=== PATIENT | female | born 1945 | race Caucasian/White ===

== ENCOUNTER 2016-07-02 07:34 | Day surgery (SDC) | payer MEDICARE ==
[~2016-07-02] VITALS: Ht 160 cm; Wt 59.4 kg
[~2016-07-02 07:34] MED LIST: 0.9% Sodium Chloride 1,000 ML IV SCH; ALBU8.5H2 INHALATION; ATOR20TA65 PO; ESCI10TA3 PO; METF1000 PO; Sodium Chloride LOK Flush 10 mL Syringe IV PRN; fentaNYL-PF 50 mCg/mL 2 mL Inj IVPUSH PRN
[2016-07-02 07:58] VITALS: BP 125/76; PULSE 72; RESP 18; O2SAT 98
[2016-07-02 09:45] VITALS: BP 108/63; PULSE 60; RESP 14; O2SAT 95
[2016-07-02 09:55] VITALS: BP 106/61; PULSE 57; RESP 14; O2SAT 95
[2016-07-02 10:05] VITALS: BP 104/58; PULSE 57; RESP 14; O2SAT 96
[2016-07-02 10:14] VITALS: BP 108/63; PULSE 58; RESP 14; O2SAT 97
--- NOTE | 2016-07-02 10:16 | ENDO ---
[address] [address] ENDOSCOPY PROCEDURE PATIENT: KEREN PEARCE : 1945 MR#: [id number] ADMIT: 07/02/2016 JOB ID: [id number] PROCEDURE: Colonoscopy. INDICATION: Altered bowel habits. ASA CLASSIFICATION: 2. MALLAMPATI SCORE: 2. MEDICATIONS: Versed 5 mg and fentanyl 100 mcg. INSTRUMENT USED: PCF-H180L. PREP QUALITY: Poor. PROCEDURE DETAILS: After informed consent was obtained, the patient was brought to the GI suite, where she was placed on oxygen via nasal cannula and monitored with continuous pulse oximeter, telemetry, and blood pressure monitoring. A time-out was performed. Then, she was placed in a left lateral decubitus position and medications were administered for sedation. Digital rectal exam was performed which was unremarkable. The colonoscope was then inserted into the rectum and advanced under direct visualization to the cecum, which is identified by the presence of the ileocecal valve and appendiceal orifice. Once cecum was reached colonoscope was withdrawn back into the rectum. Mucosa and lumen were examined. In the rectum, retroflexion was performed. Following retroflexion, remaining air in the rectum was suctioned and the procedure was completed. FINDINGS: 1. The prep was poor throughout the colon. Therefore smaller lesions may have been missed. 2. In the ascending colon, there was a flat 8 mm polyp that was lifted using normal saline and then removed with a hot snare. Following polypectomy there was bleeding at the site. Bleeding was controlled with placement of 1 [employer] clip. 3. The remainder of the visualized colon mucosa otherwise appeared unremarkable. Multiple random biopsies were obtained throughout the colon. 4. Retroflexed views in the rectum were unremarkable. IMPRESSIONS: 1. Ascending colon polyp. 2. Poor prep. RECOMMENDATIONS: 1. Repeat colonoscopy with 2 day prep. 2. Recommend MiraLAX daily. 3. Followup in GI clinic after repeat colonoscopy. COMPLICATIONS: None. ESTIMATED BLOOD LOSS: Less than 5 mL.
[2016-07-02 10:24] VITALS: BP 112/59; PULSE 69; RESP 16; O2SAT 100
--- NOTE | 2016-07-03 18:27 | PATH ---
SURGICAL PATHOLOGY Attending Physician:Adele Giles CASE STATUS: Signed Out PATIENT NAME: KEREN PEARCE PID: [id number] : 1945 DATE COLLECTED:07/02/2016 17:33 SPECIMEN: 1: Colon, Biopsy 2: Colon, Biopsy CLINICAL HISTORY: 1). ASCENDING POLYP 2). RANDOM COLON BIOPSIES FINAL DIAGNOSIS: 1. Ascending Colon, Polyp, Biopsy: Portions of tubular adenoma x2; negative for high-grade dysplasia. 2. Random Colon Biopsies: Colonic mucosa with no significant diagnostic abnormality. Negative for active inflammation, granulomas, dysplasia, and malignancy. ICD10: K63.5 GROSS DESCRIPTION: The specimen is received in two formalin filled containers labeled with the patient's name. 1). The specimen is sublabeled "ascending polyp" and consists of 2 portions of tissue which aggregate to 0.4 x 0.4 x 0.3 CM. The specimen is entirely submitted in cassette 1A. 2). The specimen is sublabeled "random colon" and consists of multiple portions of tissue which aggregate to 0.4 x 0.4 x 0.3 CM. The specimen is entirely submitted in cassette 2A. 07/02/2016 [facility] ICD-9 CODES: CPT CODES: 1: 71599 2: 96193 Electronically Signed Out Audrey Arroyo MD [facility] Pathology [facility] [address], [place] [address] Technical component performed at [facility], [address] [place] [address] [address], [place], [address]
[2016-08-22] MEDS ORDERED: ALBU90AE IH (10:10)
== END 2016-07-02 23:59 | disposition home or self-care (01) ==
LOC: END 07:34
PROVIDERS: ATTEND Internal Medicine Gastroenterology
DX: R19.4 Change in bowel habit (principal); D12.2 Benign neoplasm of ascending colon; F41.9 Anxiety disorder, unspecified; Z79.84 Long term (current) use of oral hypoglycemic drugs
CPT/HCPCS: 45380; 45381; 45385; 88305; 99153; G0500; J2250; J3010; J7030

== ENCOUNTER 2016-08-23 07:45 | Day surgery (SDC) | payer MEDICARE ==
[~2016-08-23] VITALS: Ht 162.6 cm; Wt 59.4 kg
[~2016-08-23 07:45] MED LIST changes: -ALBU8.5H2 INHALATION; +ALBU90AE IH
[2016-08-23] MEDS ORDERED: fentaNYL-PF 50 mCg/mL 2 mL Inj IVPUSH ONE (07:46)
[2016-08-23 07:52] VITALS: BP 126/76; PULSE 69; RESP 14; O2SAT 98
[2016-08-23 08:56] VITALS: BP 108/56; PULSE 65; RESP 16; O2SAT 98
[2016-08-23 09:06] VITALS: BP 107/65; PULSE 64; RESP 16; O2SAT 98
--- NOTE | 2016-08-23 09:21 | ENDO ---
[address] [address] ENDOSCOPY PROCEDURE PATIENT: KEREN PEARCE : 1945 MR#: [id number] ADMIT: 08/23/2016 JOB ID: [id number] DATE: 08/23/2016 PROCEDURE: Colonoscopy. INDICATION: Altered bowel function. The patient's ASA classification is 2. Mallampati score is 2. MEDICATIONS: 1. Versed 4 mg. 2. Fentanyl 100 mcg. INSTRUMENT USED: PCF H 190 L. PREPARATION QUALITY: Was fair. PROCEDURE DETAILS: After informed consent was obtained, the patient was brought into the GI suite, where she was placed on oxygen via nasal cannula and monitored with continuous pulse oximeter, telemetry and blood pressure monitoring. A time-out was performed. Then, she was placed in the left lateral decubitus position and medications were administered for sedation. Digital rectal examination was performed and was unremarkable. The colonoscope was then inserted into the rectum and advanced under direct visualization to the cecum, which was identified by the presence of the ileocecal valve and appendiceal orifice. Once the cecum was reached, the colonoscope was withdrawn back into the rectum as the mucosa and lumen were examined. In the rectum, retroflexion was performed. Following retroflexion, remaining air in the rectum was suctioned, and the procedure was completed. FINDINGS: 1. A diminutive polyp was seen in the ascending colon that was removed with cold biopsy forceps. Otherwise normal examination from rectum to cecum. IMPRESSION: Ascending colon polyp. RECOMMENDATIONS: Repeat colonoscopy pending polyp pathology results. COMPLICATIONS: None. ESTIMATED BLOOD LOSS: Less than 5 mL.
--- NOTE | 2016-08-27 11:12 | PATH ---
SURGICAL PATHOLOGY Attending Physician:Adele Giles CASE STATUS: Signed Out PATIENT NAME: KEREN PEARCE PID: [id number] : 1945 DATE COLLECTED:08/23/2016 15:33 SPECIMEN: Colon, Biopsy CLINICAL HISTORY: 1. ASCENDING POLYP FINAL DIAGNOSIS: 1.ASCENDING COLON POLYP: TUBULAR ADENOMA. ICD10 D12.2 GROSS DESCRIPTION: The specimen is received in one formalin filled container labeled with the patient's name, sublabeled "ascending polyp" and consists of a 0.3 x 0.2 x 0.2 CM portion of tissue which is entirely submitted in one cassette. 08/23/2016 [facility] MICRO DESCRIPTION: See diagnosis. ICD-9 CODES: CPT CODES: 1: 28725 Electronically Signed Out Dennis Gorman MD [facility] Pathology [facility] [address], [place] [address] Technical component performed at [facility], [facility] [address], [place], [address]
== END 2016-08-23 23:59 | disposition home or self-care (01) ==
LOC: END 07:45
PROVIDERS: ATTEND Internal Medicine Gastroenterology
DX: D12.2 Benign neoplasm of ascending colon (principal); R19.4 Change in bowel habit; F41.9 Anxiety disorder, unspecified; Z79.84 Long term (current) use of oral hypoglycemic drugs
CPT/HCPCS: 45380; 88305; G0500; J2250; J3010